=== PATIENT | female | born 1960 | race Caucasian/White ===

== ENCOUNTER 2024-07-08 09:22 | Emergency (ER) | payer OTHER ==
[~2024-07-08] VITALS: Ht 165.1 cm; Wt 127.9 kg
[2024-07-08] MEDS ORDERED: LOSARTAN POTASS50 MG PO (09:31)
[2024-07-08] MEDS ORDERED: SIMVASTATIN20 MG PO (09:37)
[2024-07-08] MEDS ORDERED: SINGULAIR4 M1 PO (09:37)
[2024-07-08] MEDS ORDERED: CHLORTHALIDONE25 MG PO (09:37)
[2024-07-08] MEDS ORDERED: FOLIC ACID20 MG PO (09:38)
[2024-07-08] MEDS ORDERED: LEVALBUTEROL HCL 1.25 MG/3 ML SOLUTION IH SCH (10:00)
[2024-07-08] MEDS ORDERED: METHYLPREDNISOLONE SOD SUCC 40 MG VIAL IM ONE (10:00)
[2024-07-08] MEDS ORDERED: CEFTRIAXONE SODIUM 1,000 MG VIAL IV ONE (10:00)
[2024-07-08] MEDS ORDERED: GUAIFENESIN 200 MG/10 ML BLIST.PACK PO ONE (10:00)
[2024-07-08] MEDS ORDERED: MAGNESIUM SULFATE IN WATER 4GM/50ML PIGGYBAG IV ONE (10:00)
[2024-07-08] MEDS ORDERED: MAGNESIUM SULFATE IN WATER 2 GM/50 ML PIGGYBAG IV ONE (10:00)
[2024-07-08 10:20] LABS: HEMOGLOBIN 11.8 g/dL (12.0-15.00); MEAN CELL VOLUME 82.2 fL (80.00-100.00); MEAN CORPUSCULAR HEMOGLOBIN 26.9 pg (27.00-32.0); MEAN CORPUSCULAR HGB CONC 32.8 g/dl (32.0-36.0); PLATELET COUNT 395 K/uL (150-450); RED BLOOD COUNT 4.38 M/uL (4.00-6.00); RED CELL DISTRIBUTION WIDTH 17.4 % (11.5-14.5)
[2024-07-08 10:33] LABS: ABG PH 7.442 (7.35-7.45); ABG PO2 90.4 mmHg (80-100); ABG pCO2 45.8 mmHg (35-45); BASE EXCESS 5.5 mmol/l; BICARBONATE 30.5 mmol/l (23-25); SaO2 97.4 %; Tco2 31.9 mmol/l
[2024-07-08 10:39] LABS: ALBUMIN 3.4 gm/dL (3.4-5.0); BILIRUBIN TOTAL 0.36 mg/dL (0.3-1.2); CALCIUM 9.5 mg/dL (8.5-10.1); CREATININE SERUM 0.69 mg/dL (0.55-1.02); GFR 85.93; GLOBULINA 4.5 G/DL (2.4-3.5); POTASSIUM 3.59 mEq/L (3.5-5.1); TOTAL PROTEIN 7.9 gm/dL (6.4-8.2)
[2024-07-08 11:49] LABS: allen test SATISFACTORY; o2 21 %; puncture site RADIAL LEFT
[2024-07-08] MEDS ORDERED: LEVALBUTER0.63 MG/3 IH (13:58)
[2024-07-08] MEDS ORDERED: BENZONATATE200 M1 PO (13:58)
[2024-07-08] MEDS ORDERED: MEDROLPACK PO (13:58)
== END 2024-07-08 14:18 | disposition home or self-care (01) ==
LOC: ER 09:24
PROVIDERS: General Practice
DX: J45.909 Unspecified asthma, uncomplicated (principal); J00 Acute nasopharyngitis [common cold]; M19.90 Unspecified osteoarthritis, unspecified site; I10 Essential (primary) hypertension; G47.39 Other sleep apnea; E11.9 Type 2 diabetes mellitus without complications